=== PATIENT | female | born 1960 ===

== ENCOUNTER 2021-10-05 12:48 | Emergency (ER) | payer SELFPAY ==
[2021-10-05 12:58] VITALS: BP 132/85
--- NOTE | 2021-10-05 13:19 | Emergency Department Report ---
- General Chief complaint: Skin/Abscess/Foreign Body Stated complaint: FISH BONE STUCK IN THROAT Time Seen by Provider: 10/05/21 13:09 Source: patient Mode of arrival: Ambulatory Limitations: No Limitations - History of Present Illness Initial comments: 61 yo comes to ER with fish bone stuck in her throat. Noted on right tonsil complaint: other -: Sudden, hour(s) Tetanus Up to Date: yes Consistency: constant Improves with: none Worsens with: none Associated symptoms: denies other symptoms Treatments Prior to Arrival: none - Related Data Allergies Allergy/AdvReac Type Severity Reaction Status Date / Time No Known Allergies Allergy Verified 10/05/21 12:55 Abscess Boil HPI - HPI Chief Complaint: Skin/Abscess/Foreign Body Stated Complaint: FISH BONE STUCK IN THROAT Time Seen by Provider: 10/05/21 13:09 Allergies/Adverse Reactions: Allergies Allergy/AdvReac Type Severity Reaction Status Date / Time No Known Allergies Allergy Verified 10/05/21 12:55 ED Review of Systems ROS: Stated complaint: FISH BONE STUCK IN THROAT Other details as noted in HPI Comment: All other systems reviewed and negative ED Past Medical Hx - Past Medical History Previous Medical History?: No - Surgical History Past Surgical History?: No - Family History Family history: no significant - Social History Smoking Status: Never Smoker Substance Use Type: None ED Physical Exam - General Limitations: No Limitations General appearance: alert, in no apparent distress - Head Head exam: Present: atraumatic, normocephalic - Eye Eye exam: Present: normal appearance - ENT ENT exam: Present: mucous membranes moist - Expanded ENT Exam Expanded Throat exam: Positive: other - Neck Neck exam: Present: normal inspection - Respiratory Respiratory exam: Present: normal lung sounds bilaterally. Absent: respiratory distress - Cardiovascular Cardiovascular Exam: Present: regular rate, normal rhythm. Absent: systolic murmur, diastolic murmur, rubs, gallop - GI/Abdominal GI/Abdominal exam: Present: soft, normal bowel sounds - Extremities Exam Extremities exam: Present: normal inspection - Back Exam Back exam: Present: normal inspection - Neurological Exam Neurological exam: Present: alert, oriented X3 - Psychiatric Psychiatric exam: Present: normal affect, normal mood - Skin Skin exam: Present: warm, dry, intact, normal color. Absent: rash ED Course Vital Signs 10/05/21 12:55 Temperature 98.5 F Pulse Rate 106 H Respiratory 16 Rate Blood Pressure 132/85 [Left] O2 Sat by Pulse 98 Oximetry - Procedure Description Procedures done: removed fish bone from right tonsil without difficulty. used blunt curved forcept to retain. tolerated well. abc intact. taking po ED Medical Decision Making - Medical Decision Making fish bone removed from right tonsil tolerated well HR 90 on provider exam abc intact Vital Signs 10/05/21 12:55 Temperature 98.5 F Pulse Rate 106 H Respiratory 16 Rate Blood Pressure 132/85 [Left] O2 Sat by Pulse 98 Oximetry taking po dc home with dc plan of care including pcp follow up - Differential Diagnosis fb Critical care attestation.: If time is entered above; I have spent that time in minutes in the direct care of this critically ill patient, excluding procedure time. ED Disposition Clinical Impression: Foreign body in throat Qualifiers: Encounter type: initial encounter Qualified Code(s): T17.208A - Unspecified foreign body in pharynx causing other injury, initial encounter Disposition: HOME / SELF CARE / HOMELESS Is pt being admited?: No Does the pt Need Aspirin: No Condition: Stable Instructions: Swallowed Foreign Body, Adult Additional Instructions: hydrate well today motrin or tylenol Referrals: JOSE LEOS MD [Staff Physician] - 3-5 Days Time of Disposition: 13:18
== END 2021-10-05 15:10 | disposition left against medical advice (07) ==
LOC: ED 12:48
DX: T17.228A Food in pharynx causing other injury, initial encounter (principal); X58.XXXA Exposure to other specified factors, initial encounter; Y93.89 Activity, other specified; Y92.89 Other specified places as the place of occurrence of the external cause; Y99.8 Other external cause status
CPT/HCPCS: 99281; 99283